=== PATIENT | female | born 1980 | race Two or more races ===

== ENCOUNTER 2018-09-30 08:18 | Emergency (ER) | payer MEDICAID, OTHER ==
[~2018-09-30] VITALS: Ht 152.4 cm; Wt 50.8 kg
[2018-09-30 09:37] VITALS: BP 106/49
== END 2018-09-30 10:40 | disposition home or self-care (01) ==
LOC: ER 08:18
DX: H66.93 Otitis media, unspecified, bilateral (principal)

== ENCOUNTER 2019-02-05 06:49 | Emergency (ER) | payer MEDICAID ==
[~2019-02-05] VITALS: Ht 152.4 cm; Wt 52.2 kg
[2019-02-05 06:57] VITALS: BP 104/60
== END 2019-02-05 08:12 | disposition home or self-care (01) ==
LOC: ER 06:49
DX: H66.92 Otitis media, unspecified, left ear (principal)

== ENCOUNTER 2019-04-23 15:55 | Emergency (ER) | payer MEDICAID ==
[~2019-04-23] VITALS: Ht 152.4 cm; Wt 54.4 kg
[2019-04-23 16:37] VITALS: BP 105/63
[2019-04-23] MEDS ORDERED: ACETAMINOPHEN 500 MG TAB PO ONE (17:00)
== END 2019-04-23 17:59 | disposition home or self-care (01) ==
LOC: ER 15:59
DX: R51 Headache (principal); F41.1 Generalized anxiety disorder; W20.8XXA Other cause of strike by thrown, projected or falling object, initial encounter; Y93.89 Activity, other specified; Y92.89 Other specified places as the place of occurrence of the external cause; Y99.8 Other external cause status
CPT/HCPCS: 70450

== ENCOUNTER 2020-12-19 13:54 | Emergency (ER) | payer MEDICAID ==
[~2020-12-19] VITALS: Ht 152.4 cm; Wt 54.4 kg
[2020-12-19 14:30] VITALS: BP 108/59
[2020-12-19] MEDS ORDERED: KETOROLAC TROMETH 60MG/2ML VIAL IM ONE (15:15)
[2020-12-19] MEDS ORDERED: METHOCARBAMOL 500 MG TAB PO ONE (15:15)
== END 2020-12-19 15:48 | disposition still patient (30) ==
LOC: ER 13:54
DX: S83.91XA Sprain of unspecified site of right knee, initial encounter (principal)
CPT/HCPCS: 73562; 96372; 99283; J1885

== ENCOUNTER 2022-10-05 09:45 | Emergency (ER) | payer MEDICAID ==
[~2022-10-05] VITALS: Ht 152.4 cm; Wt 54.7 kg
[2022-10-05 10:30] LABS: Basophils # (auto) 0 10 ^3/uL (0-0.2); Basophils % (auto) 0.4 % (0.0-2.0); Eosinophils # (auto) 0.1 10 ^3/uL (0-0.8); Hematocrit 40.8 % (36.0-46.0); Hemoglobin 13.5 g/dL (12.2-16.2); Lymphocytes % (auto) 27.8 % (10.0-50.0); Mean Corpuscular Hemoglobin 27.4 pg (28.0-32.0); Mean Corpuscular Hgb Conc. 33.1 g/dL (32.0-36.0); Mean Corpuscular Volume 82.8 fL (80.0-100.0); Monocytes # (auto) 0.5 10 ^3/uL (0-1.3); Monocytes % (auto) 6.5 % (0.0-12.0); Neutrophils # (auto) 4.5 10 ^3/uL (1.6-8.6); Neutrophils % (auto) 63.3 % (37.0-80.0); Nucleated Red Blood Cells % 0.1 %; Red Blood Cells 4.93 10^6/uL (4.0-5.20); Red Cell Distribution Width 14.5 % (11.8-14.3); White Blood Cell 7.1 10^3/uL (4.4-10.8)
[2022-10-05 10:37] LABS: Urine Bacteria FEW /hpf (None Seen); Urine Blood 3+ /uL (Negative); Urine Mucus FEW (None Seen); Urine Specific Gravity 1.028 (1.001-1.035); Urine WBC 45 /hpf (0 - 5); Urine WBC Clumps PRESENT /hpf (None Seen)
[2022-10-05 10:46] LABS: Albumin 4.1 g/dL (3.4-5.0); Calcium 8.9 mg/dL (8.5-10.1); Potassium 4.1 mmol/L (3.5-5.1)
[2022-10-05 10:51] LABS: BUN/Creatinine Ratio 19.4; Bilirubin, Total 0.9 mg/dL (0.2-1.0); Total Protein 7.4 g/dL (6.4-8.2)
[2022-10-05] MEDS ORDERED: NITR-87 PO (12:46)
[2022-10-05 13:47] VITALS: BP 98/50
== END 2022-10-05 13:59 | disposition home or self-care (01) ==
LOC: ER 09:45
DX: N39.0 Urinary tract infection, site not specified (principal); Z98.51 Tubal ligation status
CPT/HCPCS: 36415; 74176; 80053; 81001; 83690; 84702; 85025

== ENCOUNTER 2023-02-17 16:35 | Emergency (ER) | payer MEDICAID ==
[~2023-02-17] VITALS: Ht 152.4 cm; Wt 55.1 kg
[~2023-02-17 16:35] MED LIST: NITR-87 PO
[2023-02-17] MEDS ORDERED: IBUPROFEN 600 MG TAB PO ONE (18:45)
[2023-02-17] MEDS ORDERED: CYCL-839 PO (18:48)
[2023-02-17] MEDS ORDERED: IBUP1TAB4 PO (18:48)
[2023-02-17 20:17] VITALS: BP 110/60
== END 2023-02-17 20:26 | disposition home or self-care (01) ==
LOC: ER 16:39
DX: S13.9XXA Sprain of joints and ligaments of unspecified parts of neck, initial encounter (principal); S33.5XXA Sprain of ligaments of lumbar spine, initial encounter; S63.501A Unspecified sprain of right wrist, initial encounter; S83.92XA Sprain of unspecified site of left knee, initial encounter; S09.90XA Unspecified injury of head, initial encounter; Z98.51 Tubal ligation status; V49.59XA Passenger injured in collision with other motor vehicles in traffic accident, initial encounter; Y93.89 Activity, other specified; Y92.89 Other specified places as the place of occurrence of the external cause; Y99.8 Other external cause status
CPT/HCPCS: 70450; 72100; 72125; 73110; 73562

== ENCOUNTER 2023-09-24 18:25 | Emergency (ER) | payer MEDICAID ==
[~2023-09-24] VITALS: Ht 152.4 cm; Wt 54.2 kg
[2023-09-24 18:25] VITALS: BP 114/70; PULSE 78; RESP 16; TEMP 98.1; O2SAT 99
[~2023-09-24 18:25] MED LIST changes: +CYCL-839 PO; +IBUP1TAB4 PO
[2023-09-24] MEDS ORDERED: AMOX875T4 PO (23:39)
[2023-09-24] MEDS ORDERED: BENZOCAINE (DENTAL) 20 % SPRAY 60ML MT ONE (23:45)
== END 2023-09-25 00:02 | disposition home or self-care (01) ==
LOC: ER 18:25
DX: K04.7 Periapical abscess without sinus (principal); Z79.2 Long term (current) use of antibiotics; Z79.1 Long term (current) use of non-steroidal anti-inflammatories (NSAID); Z79.899 Other long term (current) drug therapy

== ENCOUNTER 2024-12-01 01:45 | Emergency (ER) | payer MEDICAID ==
[~2024-12-01] VITALS: Ht 152.4 cm; Wt 59.2 kg
[2024-12-01 02:14] VITALS: BP 116/56; PULSE 76; RESP 16; TEMP 98.9; O2SAT 99
[2024-12-01] MEDS ORDERED: IBUP-1456 PO (02:16)
[2024-12-01] MEDS ORDERED: METH4PAK PO (02:16)
--- NOTE | 2024-12-01 02:16 | ED.PDOC ---
Musculoskeletal HPI Comments 44-YEAR-OLD FEMALE PRESENTS TO ER WITH COMPLAINTS OF LEFT SHOULDER PAIN X3 DAYS. PATIENT REPORTS THAT SHE WOKE UP WITH LEFT SHOULDER PAIN THREE DAYS AGO. DENIES ANY TRAUMA/INJURY/HEAVY LIFTING AND STATES SHE BELIEVES IT STARTED AFTER "SLEEPING ON HER LEFT ARM" 3 DAYS AGO. SHE RATES HER CURRENT LEFT SHOULDER PAIN A 10/10 WITH RADIATION DOWN LEFT ARM. NOTES SHE HAS BEEN TAKING MOTRIN FOR HER PAIN WITH SOME RELIEF. PATIENT PRESENTS TO ER AMBULATORY ON ARRIVAL, WITH STEADY GAIT, IN NO DISTRESS. DENIES NUMBNESS/TINGLING, SHORTNESS OF BREATH, CHEST PAIN, SKIN CHANGES, EXTREMITY WEAKNESS OR ANY FURTHER SYMPTOMS/COMPLAINTS Chief Complaint: Upper Extremity Time Seen by MD: 02:01 Primary Care Provider: SONIA Reviewed Notes: Nurses Notes, Medications, Allergies Allergies: Coded Allergies: NO KNOWN ALLERGIES (Unverified , 09/30/18) Home Meds Active Scripts Ibuprofen (Ibuprofen) 800 Mg Tab, 1 TAB PO TID PRN, #30 TAB 0 Refills Prov:LYNETTE DRIVER 12/01/24 Methylprednisolone (Medrol Dosepak) 4 Mg Maxwell, 4 MG PO UD, #21 TAB 0 Refills UAD Prov:LYNETTE DRIVER 12/01/24 Cyclobenzaprine Hcl (Cyclobenzaprine Hcl) 10 Mg Tab, 1 TAB PO BID, #10 TAB as needed for muscle spasm Prov:NAYELY APONTE Q STOCK ROOM MANAGER 02/17/23 Ibuprofen Micronized (Ibuprofen) 400 Mg Tab, 1 TAB PO Q6HR, #20 TAB as needed for pain with food Prov:NAYELY APONTE Q STOCK ROOM MANAGER 02/17/23 Nitrofurantoin Monohydrate Mac (Macrobid) 100 Mg Cap, 100 MG PO BID for 7 Days, #14 CAP Prov:JYOTSNA PACK MD 10/05/22 Information Source: Patient Mode of Arrival: Ambulatory Past Medical History PAST MEDICAL HISTORY: Denies Surgical History: Tubal Ligation HEAVY EQUIPMENT TECHNICIAN History: Denies all HEAVY EQUIPMENT TECHNICIAN Hx Family History Family History: Unknown Social History Smoker: Non-Smoker Alcohol: Denies ETOH Use Drugs: Denies Drug Use Lives In: Home Constitutional: denies: chills, diaphoresis, fatigue, fever, malaise, sweats, weakness, others EENTM: denies: blurred vision, double vision, ear bleeding, ear discharge, ear drainage, ear pain, ear ringing, eye pain, eye redness, hearing loss, mouth pain, mouth swelling, nasal discharge, nose bleeding, nose congestion, nose pain, photophobia, tearing, throat pain, throat swelling, voice changes, others Respiratory: denies: cough, hemoptysis, orthopnea, SOB at rest, shortness of breath, SOB with excertion, stridor, wheezing, others Cardiovascular: denies: chest pain, dizzy spells, diaphoresis, Dyspnea on exertion, edema, irregular heart beat, left arm pain, lightheadedness, palpitations, PND, syncope, others Gastrointestinal: denies: abdomen distended, abdominal pain, blood streaked bowels, constipated, diarrhea, dysphagia, difficulty swallowing, hematemesis, melena, nausea, poor appetite, poor fluid intake, rectal bleeding, rectal pain, vomiting, others Genitourinary: denies: abnormal vagina bleeding, burning, dyspareunia, dysuria, flank pain, frequency, hematuria, incontinence, pain, , vagina discharge, urgency, others Neurological: denies: dizziness, fainting, headache, left sided numbness, left sided weakness, numbness, paresthesia, pre-existing deficit, right sided numbness, right sided weakness, seizure, speech problems, tingling, tremors, weakness, others Musculoskeletal: reports: others ( STATED IN HPI) Integumetry: denies: bruises, change in color, change in hair/nails, dryness, laceration, lesions, lumps, rash, wounds, others Allergic/Immunocompromised: denies: Difficulty Healing, Frequent Infections, Hi ves, Itching, others Hematologic/Lymphatic: denies: anemia, blood clots, easy bleeding, easy bruising, swollen glands, others Endocrine: denies: excessive hunger, excessive sweating, excessive thirst, excessive urination, flushing, intolerance to cold, intolerance to heat, unexplained weight gain, unexplained weight loss, others Psychiatric: denies: anxiety, bipolar disorder, depression, hopeless, panic disorder, schizophrenia, sleepless, suicidal, others Physical Exam General Appearance: No Apparent Distress HEENT: PERRL/EOMI Neck: Full Range of Motion, Non-Tender, Normal Respiratory: Chest Non-Tender, Lungs Clear, No Accessory Muscle Use, No Respiratory Distress, Normal Breath Sounds Cardiovascular: No Murmur, No Gallop, Regular Rate/Rhythm Breast Exam: Deferred Gastrointestinal: NOT DONE Genitalia: Deferred Pelvic: Deferred Rectal: Deferred Extremities: Normal capillary refill, Normal range of motion Musculoskeletal : Extremity Location: Shoulder (Slight TTP to left GH joint noted. No skin changes/deformity noted. Negative Apley scratch test left shoulder shoulder. Pulses intact. Medical Management Specialist strength intact and equal bilaterally) Neurologic: Alert, crystal attacher II-XII nml as Tested, No Motor Deficits, Normal Affect, Normal Mood, No Sensory Deficits Cerebellar Function: Normal Reflexes: Normal Skin: Dry, Normal Color, Warm Peripheral Pulses: 2+ Radial (R), 2+ Radial (L), 2+ Brachial (R), 2+ Brachial (L) Lymphatic: No Adenopathy Was a procedure done? Was a procedure done?: No Sedation Sedation?: No Differential Diagnosis EXT Differential Diagnosis: Fracture, Dislocation, Neurovascular injury X-Ray, Labs, Meds, VS Vital Signs Date Time Temp Pulse Resp B/P (MAP) Pulse Ox O2 Delivery O2 Flow Rate FiO2 12/01/24 02:14 98.9 76 16 116/56 (76) 99 98.9 12/01/24 02:14 Room Air* 0 21 12/01/24 01:53 98.9 76 16 116/56 (76) 99 98.9 Toradol 60 mg IM ordered Patient neurovascularly intact and had improvement in symptoms prior to discharge Advised on rest/no strenuous activity Advised to follow up with PCP in 1-2 days Patient verbalized understanding and agreeable with current plan of care Advised to return to ER immediately if symptoms worse Time of 1ST Reevaluation: 01:54 Reevaluation 1ST: N/A Patient Education/Counseling: Diagnosis, Treatment, Prognosis, Need For Follow Up Family Education/Counseling: No Family Present Departure 1 Departure Time of Disposition: 02:12 Impression: Primary Impression: Left shoulder strain Qualified Codes: S46.912A - Strain of unspecified muscle, fascia and tendon at shoulder and upper arm level, left arm, initial encounter Disposition: HOME / SELF CARE / HOMELESS Condition: Stable e-Prescriptions Ibuprofen (Ibuprofen) 800 Mg Tab 1 TAB PO TID PRN, #30 TAB 0 Refills Prov: LYNETTE DRIVER 12/01/24 Methylprednisolone (Medrol Dosepak) 4 Mg Maxwell 4 MG PO UD, #21 TAB 0 Refills UAD Prov: LYNETTE DRIVER 12/01/24 Discharged With: Self Critical Care Note Critical Care Time?: No Stability Stability form required: No Heart Score Heart Score: Heart Score Response (Comments) Value History N/A 0 EKG N/A 0 Age N/A 0 Risk Factors N/A 0 Troponin N/A 0 Total 0 LYNETTE DRIVER Dec 01, 2024 02:16
[2024-12-01] MEDS: KETOROLAC TROMETH 60MG/2ML VIAL IM ONE (02:19)
== END 2024-12-01 02:23 | disposition home or self-care (01) ==
LOC: ER 01:45
DX: S46.912A Strain of unspecified muscle, fascia and tendon at shoulder and upper arm level, left arm, initial encounter (principal); Z98.51 Tubal ligation status; Z79.899 Other long term (current) drug therapy; X58.XXXA Exposure to other specified factors, initial encounter; Y93.89 Activity, other specified; Y92.89 Other specified places as the place of occurrence of the external cause; Y99.8 Other external cause status
CPT/HCPCS: 96372; 99283; J1885

== ENCOUNTER 2025-07-18 11:18 | Emergency (ER) | payer MEDICAID ==
[~2025-07-18] VITALS: Ht 157.5 cm; Wt 57.4 kg
[~2025-07-18 11:18] MED LIST changes: +IBUP-1456 PO; +METH4PAK PO
[2025-07-18 11:21] VITALS: BP 112/69; PULSE 65; RESP 18; TEMP 98; O2SAT 98
--- NOTE | 2025-07-18 13:14 | ED.PDOC ---
Musculoskeletal HPI Comments 45-year-old female presents to the ER with a chief complaint of a suture removal. The patient reports that she had had the sutures placed on 07/08/2025 and wants them to be removed. Patient had five stitches placed and was located on the right thumb. Denies any other symptoms at this time. Chief Complaint: Suture Removal Time Seen by MD: 13:00 Primary Care Provider: SONIA Gupta Notes: Nurses Notes, Medications, Allergies Allergies: Coded Allergies: NO KNOWN ALLERGIES (Unverified , 09/30/18) Home Meds Active Scripts Ibuprofen (Ibuprofen) 800 Mg Tab, 1 TAB PO TID PRN, #30 TAB 0 Refills Prov:LYNETTE DRIVER 12/01/24 Methylprednisolone (Medrol Dosepak) 4 Mg Maxwell, 4 MG PO UD, #21 TAB 0 Refills UAD Prov:LYNETTE DRIVER 12/01/24 Cyclobenzaprine Hcl (Cyclobenzaprine Hcl) 10 Mg Tab, 1 TAB PO BID, #10 TAB as needed for muscle spasm Prov:NAYELY APONTE Q LOFT WORKER HEAD 02/17/23 Ibuprofen Micronized (Ibuprofen) 400 Mg Tab, 1 TAB PO Q6HR, #20 TAB as needed for pain with food Prov:NAYELY APONTE Q LOFT WORKER HEAD 02/17/23 Nitrofurantoin Monohydrate Mac (Macrobid) 100 Mg Cap, 100 MG PO BID for 7 Days, #14 CAP Prov:JYOTSNA PACK MD 10/05/22 Information Source: Patient Mode of Arrival: Ambulatory Location: Right Extremity Location: Thumb Timing: Days Prehospital treatment: None Severity: Moderate Able to Move Extremity: Yes Bear Weight: Limited Pain: None Hand Dominance: Right Mechanism: None Circumstances: Preceding Wound Associated signs and symptoms: Other (Preceding wound) Past Medical History PAST MEDICAL HISTORY: Denies Surgical History: Tubal Ligation DIVISION MERCHANDISE MANAGER History: Denies all DIVISION MERCHANDISE MANAGER Hx Family History Family History: Reviewed,noncontributory to illness, Unknown Social History Smoker: Non-Smoker Alcohol: Denies ETOH Use Drugs: Denies Drug Use Lives In: Home Constitutional: denies: chills, diaphoresis, fatigue, fever, malaise, sweats, weakness, others EENTM: denies: blurred vision, double vision, ear bleeding, ear discharge, ear drainage, ear pain, ear ringing, eye pain, eye redness, hearing loss, mouth pain, mouth swelling, nasal discharge, nose bleeding, nose congestion, nose pain, photophobia, tearing, throat pain, throat swelling, voice changes, others Respiratory: denies: cough, hemoptysis, orthopnea, SOB at rest, shortness of breath, SOB with excertion, stridor, wheezing, others Cardiovascular: denies: chest pain, dizzy spells, diaphoresis, Dyspnea on exertion, edema, irregular heart beat, left arm pain, lightheadedness, palpit ations, PND, syncope, others Gastrointestinal: denies: abdomen distended, abdominal pain, blood streaked b owels, constipated, diarrhea, dysphagia, difficulty swallowing, hematemesis, melena, nausea, poor appetite, poor fluid intake, rectal bleeding, rectal pain, vomiting, others Genitourinary: denies: abnormal vagina bleeding, burning, dyspareunia, dysuria, flank pain, frequency, hematuria, incontinence, pain, , vagina discharge, urgency, others Neurological: denies: dizziness, fainting, headache, left sided numbness, left sided weakness, numbness, paresthesia, pre-existing deficit, right sided numbness, right sided weakness, seizure, speech problems, tingling, tremors, weakness, others Musculoskeletal: denies: back pain, gout, joint pain, joint swelling, muscle pain, muscle stiffness, neck pain, others Integumetry: reports: wounds (Suture removal off of the right thumb); denies: bruises, change in color, change in hair/nails, dryness, laceration, lesions, lumps, rash, others Allergic/Immunocompromised: denies: Difficulty Healing, Frequent Infections, Hives, Itching, others Hematologic/Lymphatic: denies: anemia, blood clots, easy bleeding, easy bruising, swollen glands, others Endocrine: denies: excessive hunger, excessive sweating, excessive thirst, excessive urination, flushing, intolerance to cold, intolerance to heat, unexplained weight gain, unexplained weight loss, others Psychiatric: denies: anxiety, bipolar disorder, depression, hopeless, panic disorder, schizophrenia, sleepless, suicidal, others All Other Systems: Reviewed and Negative Physical Exam Exam Comments Preceding wound to the right thumb General Appearance: No Apparent Distress, Normal HEENT: Normal ENT Inspection, Pharynx Normal, TMs Normal Neck: Full Range of Motion, Non-Tender, Normal, Normal Inspection Respiratory: Chest Non-Tender, Lungs Clear, No Accessory Muscle Use, No Respiratory Distress, Normal Breath Sounds Cardiovascular: No Edema, No JVD, No Murmur, No Gallop, Normal Peripheral Pulses, Regular Rate/Rhythm Breast Exam: Deferred Gastrointestinal: No Organomegaly, Non Tender, No Pulsatile Mass, Normal Bowel Sounds, Soft Genitalia: Deferred Pelvic: Deferred Rectal: Deferred Extremities: No calf tenderness, Normal capillary refill, Normal inspection, Normal range of motion, Non-tender, No pedal edema Musculoskeletal : Apperance: Normal Neurologic: Alert, holistic nutritionist II-XII nml as Tested, No Motor Deficits, Normal Affect, Normal Mood, No Sensory Deficits Cerebellar Function: Normal Reflexes: Normal Skin: Dry, Normal Color, Warm Lymphatic: No Adenopathy Was a procedure done? Was a procedure done?: Yes Sedation Sedation?: No Other Procedure Procedure Suture removal Prep Suture removal kit Success Yes, five stitches Informed consent obtained: Yes Risks, benefits, and alternati: Yes Notes Five stitches were removed from the right thumb Differential Diagnosis EXT Differential Diagnosis: Other X-Ray, Labs, Meds, VS Vital Signs Date Time Temp Pulse Resp B/P (MAP) Pulse Ox O2 Delivery O2 Flow Rate FiO2 07/18/25 11:21 98.0 65 18 112/69 98 98.0 X-Ray, Labs, Meds, VS Comment 45-year-old female presents to the ER with a chief complaint of a suture removal. Patient arrives alert and oriented, ABC's intact, afebrile, vital signs stable, saturating well in room air Suture Removal Suture removal procedure: The right thumb Alcohol swab used to clean area thoroughly. Used sterile suture removal kit to remove *5*sutures. Clean, dry, intact. No discharge seen. Education provided to keep area clean and dry. If gets soiled, use soap and water to clean. Watch out for signs and symptoms of infection including fever, chills, yellow or green discharge, increased pain, swelling etc. Additional MDM Review of External, Non-ED records: External records reviewed. Discussion with independent historian (EMS, family) history obtained from the patient/parents (if applicable) at bedside Chronic conditions affecting care: None Social determinants of health affecting care: None Consideration of admission (observation or admission): I considered escalation of care to admission for this patient, however given the reassuring workup, the patient is safe for outpatient management. Discussion with the Radiology: No Tests considered but not performed: Prescription medication considered but not given: 12 lead EKG interpretation: Time of 1ST Reevaluation: 13:30 Reevaluation 1ST: Unchanged Patient Education/Counseling: Diagnosis, Treatment, Prognosis Family Education/Counseling: No Family Present Departure 1 Departure Time of Disposition: 13:31 Impression: Primary Impression: Visit for suture removal Disposition: 01 HOME / SELF CARE / HOMELESS Condition: Stable Discharged With: Self Critical Care Note Critical Care Time?: No Stability Stability form required: No Heart Score Heart Score: Heart Score Response (Comments) Value History N/A 0 EKG N/A 0 Age N/A 0 Risk Factors N/A 0 Troponin N/A 0 Total 0 I personally scribed for VASYL RIVERA NP ([email or web address]) on 07/18/25 at 13:23. Elect ronically submitted by Tommy Rojas ([email or web address]). VASYL RIVERA NP Jul 18, 2025 13:14
== END 2025-07-18 14:00 | disposition home or self-care (01) ==
LOC: ER 11:18
DX: S61.011D Laceration without foreign body of right thumb without damage to nail, subsequent encounter (principal); Z98.51 Tubal ligation status; Z79.899 Other long term (current) drug therapy; Z48.02 Encounter for removal of sutures; X58.XXXD Exposure to other specified factors, subsequent encounter